=== PATIENT | female | born 1970 | race Caucasian/White ===

== ENCOUNTER 2023-12-28 10:18 | Outpatient (CLI) | payer OTHER | END 2023-12-28 10:19 | disposition home or self-care (01) | LOC: BICMAMMO 10:18 | PROVIDERS: ATTEND Family Medicine | DX: Z12.31 Encounter for screening mammogram for malignant neoplasm of breast (principal); Z91.89 Other specified personal risk factors, not elsewhere classified | CPT/HCPCS: 77063; 77067 ==

== ENCOUNTER 2025-03-11 12:35 | Outpatient (CLI) | payer OTHER | END 2025-03-11 12:36 | disposition home or self-care (01) | LOC: BICCT 12:35 | PROVIDERS: ATTEND Family Medicine | DX: Z13.6 Encounter for screening for cardiovascular disorders (principal); E78.5 Hyperlipidemia, unspecified | CPT/HCPCS: 75571 ==